=== PATIENT | female | born 1945 | race Caucasian/White ===

== ENCOUNTER 2020-02-26 16:12 | Emergency (ER) | payer MEDICARE, OTHER ==
[~2020-02-26] VITALS: Ht 162.6 cm; Wt 62.0 kg
[2020-02-26 18:11] LABS: BASO % 0 % (0-3); EOS % 0 % (0-3); HEMATOCRIT 35.6 % (36.0-47.0); HEMOGLOBIN 11.7 g/dL (12.0-15.5); LYMPH # 0.6 x10^3/uL (1.0-4.8); LYMPH % 5 % (24-48); MEAN CORPUSCULAR HEMOGLOBIN 33 pg (25-35); MEAN CORPUSCULAR HGB CONC 33 g/dL (31-37); MEAN CORPUSCULAR VOLUME 100 fL (79-100); MONO # 0.3 x10^3/uL (0.0-1.1); MONO % 3 % (0-9); NEUT # 10.3 x10^3/uL (1.8-7.7); NEUT % 92 % (31-73); PLATELET COUNT 302 x10^3/uL (140-400); RED BLOOD COUNT 3.57 x10^6/uL (3.50-5.40); RED CELL DISTRIBUTION WIDTH 14.7 % (11.5-14.5); WHITE BLOOD COUNT 11.3 x10^3/uL (4.0-11.0)
[2020-02-26 18:22] LABS: PROTHROMBIN TIME PATIENT 15.1 SEC (11.7-14.0)
--- NOTE | 2020-02-26 18:47 | RAD ---
XR CHEST 2V History: Reason: GI BLEED / Spl. Instructions: / History: Comparison: December 19, 2019 Findings: Breast implants increased density over the lung bases. No consolidation or pleural effusion. No pneum othorax. Unchanged heart size. Thoracolumbar stabilization hardware noted. Mid thoracic vertebroplast y material noted. Asymmetric left apical pleural thickening, unchanged. Impression: 1. No acute cardiopulmonary process. Electronically signed by: Dannie Chahal DO (02/26/2020 6:44 PM) [facility]
[2020-02-26 19:28] LABS: % BANDS 3 % (0-9); % LYMPHS 8 % (24-48); % MONOS 4 % (0-10); % SEGS 85 % (35-66); PLT ESTIMATE ADEQUATE (ADEQUATE)
[2020-02-26 19:38] LABS: FECAL OB PT POSITIVE (NEG)
[2020-02-26 19:43] LABS: CALCIUM 9.6 mg/dL (8.5-10.1); CREATININE 1.1 mg/dL (0.6-1.0); GFR 48.4; POTASSIUM 4.6 mmol/L (3.5-5.1)
[2020-02-26 19:50] LABS: ALBUMIN 3.6 g/dL (3.4-5.0); TOTAL BILIRUBIN 0.5 mg/dL (0.2-1.0); TOTAL PROTEIN 7.2 g/dL (6.4-8.2)
--- NOTE | 2020-02-26 20:18 | PHYS DOC ---
Past Medical History Past Medical History: A-Fib, Depression, GERD, High Cholesterol, Hypothyroid, Migraines Additional Past Medical Histor: colitis, R femur fx, spinal stenosis, seasonal allergies, osteoporsis (MAICOL BHAT APRN) Past Surgical History: Cholecystectomy, Tonsillectomy Additional Past Surgical Histo: R knee, ulcer sx, L elbow, breast implants, partial gastrectomy, face lift (MAICOL BHAT APRN) Smoking Status: Never Smoker Alcohol Use: Rarely (MAICOL BHAT APRN) General Adult EDM: Chief Complaint: ABNORMAL LABS HPI: HPI: Patient is a 74 year old female presents to the emergency department stating that her primary care Dr. Dietz sent her here for a low hemoglobin reading of 8.4. Patient states she has noted bright red blood in her stools over the past 3 days. Patient denies any chest pain, shortness of breath, nausea, vomiting, diarrhea, or abdominal pains. Patient denies any constipation. Patient states that her stool is often loose. Patient states that over the past 3 days she has noticed some bright red blood streaked in her stool. Patient currently denies any dizziness, neurological problems, weakness, or numbness to her extremities. Denies any recent fever or chills. Patient denies any other physical complaints or physical symptoms. (MAICOL BHAT APRN) Review of Systems: Review of Systems: 14 body systems of review of systems have been reviewed. See HPI for pertinent positives and negative responses, otherwise all other systems are negative, nonpertinent or noncontributory. (MAICOL BHAT APRN) Heart Score: Risk Factors: Risk Factors: DM, Current or recent (<one month) smoker, HTN, HLP, family history of CAD, obesity. Risk Scores: Score 0 - 3: 2.5% MACE over next 6 weeks - Discharge Home Score 4 - 6: 20.3% MACE over next 6 weeks - Admit for Clinical Observation Score 7 - 10: 72.7% MACE over next 6 weeks - Early Invasive Strategies (MAICOL BHAT APRN) Allergies: Allergies: Allergies Coded Allergies Type Severity Reaction Last Updated Verified acetaminophen Allergy Unknown 02/26/20 Yes fentanyl Allergy Unknown 02/26/20 Yes hydrocodone Allergy Unknown 02/26/20 Yes lithium Allergy Unknown 02/26/20 Yes immune globulin,gamma (IgG) human Adverse Reaction Unknown HYPOTENSION 02/26/20 Yes (MAICOL BHAT APRN) Physical Exam: PE: Constitutional: Well developed, well nourished, no acute distress, non-toxic appearance. [] HENT: Normocephalic, atraumatic, bilateral external ears normal, oropharynx moist, no oral exudates, nose normal. [] Eyes: PERRLA, EOMI, conjunctiva normal, no discharge. [] Neck: Normal range of motion, no tenderness, supple, no stridor. [] Cardiovascular:Heart rate regular rhythm, no murmur [] Lungs & Thorax: Bilateral breath sounds clear to auscultation [] Abdomen: Bowel sounds normal, soft, no tenderness, no masses, no pulsatile masses. [] Skin: Warm, dry, no erythema, no rash. [] Back: No tenderness, no CVA tenderness. [] Extremities: No tenderness, no cyanosis, no clubbing, ROM intact, no edema. [] Neurologic: Alert and oriented X 3, normal motor function, normal sensory function, no focal deficits noted. [] Psychologic: Affect normal, judgement normal, mood normal. [] (MAICOL BHAT APRN) Current Patient Data: Labs: Laboratory Tests Test 02/26/20 18:01 02/26/20 19:05 02/26/20 19:23 White Blood Count 11.3 x10^3/uL (4.0-11.0) H Red Blood Count 3.57 x10^6/uL (3.50-5.40) Hemoglobin 11.7 g/dL (12.0-15.5) L Hematocrit 35.6 % (36.0-47.0) L Mean Corpuscular Volume 100 fL (79-100) Mean Corpuscular Hemoglobin 33 pg (25-35) Mean Corpuscular Hemoglobin Concent 33 g/dL (31-37) Red Cell Distribution Width 14.7 % (11.5-14.5) H Platelet Count 302 x10^3/uL (140-400) Neutrophils (%) (Auto) 92 % (31-73) H Lymphocytes (%) (Auto) 5 % (24-48) L Monocytes (%) (Auto) 3 % (0-9) Eosinophils (%) (Auto) 0 % (0-3) Basophils (%) (Auto) 0 % (0-3) Neutrophils # (Auto) 10.3 x10^3/uL (1.8-7.7) H Lymphocytes # (Auto) 0.6 x10^3/uL (1.0-4.8) L Monocytes # (Auto) 0.3 x10^3/uL (0.0-1.1) Eosinophils # (Auto) 0.0 x10^3/uL (0.0-0.7) Basophils # (Auto) 0.0 x10^3/uL (0.0-0.2) Segmented Neutrophils % 85 % (35-66) H Band Neutrophils % 3 % (0-9) Lymphocytes % 8 % (24-48) L Monocytes % 4 % (0-10) Platelet Estimate Adequate (ADEQUATE) Prothrombin Time 15.1 SEC (11.7-14.0) H Prothrombin Time INR 1.2 (0.8-1.1) H Activated Partial Thromboplast Time 39 SEC (24-38) H Sodium Level 133 mmol/L (136-145) L Potassium Level 4.6 mmol/L (3.5-5.1) Chloride Level 98 mmol/L (98-107) Carbon Dioxide Level 27 mmol/L (21-32) Anion Gap 8 (6-14) Blood Urea Nitrogen 33 mg/dL (7-20) H Creatinine 1.1 mg/dL (0.6-1.0) H Estimated GFR (Cockcroft-Gault) 48.4 BUN/Creatinine Ratio 30 (6-20) H Glucose Level 158 mg/dL (70-99) H Calcium Level 9.6 mg/dL (8.5-10.1) Total Bilirubin 0.5 mg/dL (0.2-1.0) Aspartate Amino Transferase (AST) 26 U/L (15-37) Alanine Aminotransferase (ALT) 22 U/L (14-59) Alkaline Phosphatase 105 U/L (46-116) Total Protein 7.2 g/dL (6.4-8.2) Albumin 3.6 g/dL (3.4-5.0) Albumin/Globulin Ratio 1.0 (1.0-1.7) Stool Occult Blood Positive (NEG) Laboratory Tests 02/26/20 18:01 Laboratory Tests 02/26/20 19:05 Vital Signs: Vital Signs Date Time Temp Pulse Resp B/P (MAP) Pulse Ox O2 Delivery O2 Flow Rate FiO2 02/26/20 18:40 70 18 148/89 (108) 95 Room Air 02/26/20 17:23 98.1 98.1 (MAICOL BHAT APRN) EKG: EKG: EKG performed at 1732 by ED nursing staff, irregular rhythm atrial fibrillation controlled with a heart rate 81 bpm, QTc interval 0.481, no acute STEMI, no ACS, no acute ischemia appreciated, EKG interpreted by ED attending physician Dr. Carreon. (MAICOL BHAT APRN) Radiology/Procedures: Radiology/Procedures: [] (MAICOL BHAT APRN) Course & Med Decision Making: Course & Med Decision Making Pertinent Labs and Imaging studies reviewed. (See chart for details) 74-year-old female, vital signs stable, presents emergency department stating that her primary care physician sent her here for a low hemoglobin of 8.4. Labs were drawn EKG performed. Labs not concerning for acute anemia, hemoglobin 11.7. Related to patient stating that there was blood in her stool, a rectal exam was done and Hemoccult was performed, there was nonthrombosed pink hemorrhoids 1 at 5 o'clock position excoriated, no blood noted in stool. However Hemoccult was positive. Discussed findings with patient, fear of low hemoglobin not presented in ER today. Discussed with patient need to follow back up with her primary care Dr. Dietz for reevaluation of hemoglobin and hemorrhoids. Patient gave verbal understand ing of discharge home instructions, return to emergency department precautions or concerns, had no further questions or concerns and was discharged home without incident. Impression: #1 feared condition not demonstrated #2 hemorrhoids (MAICOL BHAT APRN) Course & Med Decision Making I oversaw on the above date of service of this patient and discussed the care with the FLUTE [employer]ISHER. I agree with the findings, plan of care, and disposition as documented. (JOSSY STEWARD DO) Monica Disclaimer: Dragon Disclaimer: This electronic medical record was generated, in whole or in part, using a voice recognition dictation system. (MAICOL BHAT APRN) Departure Departure Impression: Primary Impression: Feared condition not demonstrated Additional Impression: Hemorrhoids Qualified Codes: K64.9 - Unspecified hemorrhoids Disposition: 01 DC HOME SELF CARE/HOMELESS Condition: GOOD Referrals: NOREEN DIETZ MD (PCP) Additional Instructions: Please relay these labs to your Dr. Peoples on your next appointment. WBC 11.3, RBC 3.57, Hgb 11.7, HCT 35.6, RDW 14.7, KCl 4.6, STUDENT ASSISTANCE COUNSELOR 1.1, BUN 33. Please return the emergency department for worsening symptoms or other concerns. EMERGENCY DEPARTMENT GENERAL DISCHARGE INSTRUCTIONS Thank you for coming to [facility] Emergency Department (ED) today and trusting us with you care. We trust that you had a positive experience in our Emergency Department. If you wish to speak to the department management, you may call the Director at [phone]. YOUR FOLLOW UP INSTRUCTIONS ARE FOLLOWS: 1. Do you have a private Doctor? If you do not have a private doctor, please ask for a resource list of physicians or clinics that may be able to assist you with follow up care. 2. The Emergency Physicain has interpreted your x-rays. The X-Ray specialist will also review them. If there is a change in the findings, you will be notified in 48 hours when at all possible. 3. A lab test or culture has been done, your results will be reviewed and you will be notified if you need a change in treatment. ADDITIONAL INSTRUCTIONS AND INFORMATION: 1. Your care today has been supervised by a physician who is specially trained in emergency care. Many problems require more than one evaluation for a complete diagnosis and treatment. We recommend that you schedule your follow up appointment as recommended to ensure complete treatment of you illness or injury. If you are unable to obtain follow up care and continue to have a problem, or if your condition worsens, we recommend that you return to the ED. 2. We are not able to safely determine your condition over the phone nor are we able to give sound medical advice over the phone. For these safety reasons, if you call for medical advice we will ask you to come to the ED for further evaluation. 3. If you have any questions regarding these discharge instructions please call the ED at [phone]. SAFETY INFORMATION: In the interest of safety, wellness, and injury prevention; we encourage you to wear your sealbelt, if you smoke; quite smoking, and we encourage family to use a protective helmet for bicycling and other sporting events that present an increased risk for head injury. IF YOUR SYMPTOMS WORSEN OR NEW SYMPTOMS DEVELOP, OR YOU HAVE CONCERNS ABOUT YOUR CONDITION; OR IF YOUR CONDITION WORSENS WHILE YOU ARE WAITING FOR YOUR FOLLOW UP AP POINTMENT; EITHER CONTACT YOUR PRIMARY CARE DOCTOR, THE PHYSICIAN WHOSE NAME AND NUMBER YOU WERE GIVEN, OR RETURN TO THE ED IMMEDIATELY. MAICOL BHAT APRN Feb 26, 2020 20:18 JOSSY STEWARD DO Feb 29, 2020 00:19
[2020-02-26 20:20] VITALS: BP 151/67
== END 2020-02-26 20:37 | disposition home or self-care (01) ==
LOC: ER 16:12
DX: K64.9 Unspecified hemorrhoids (principal); K92.1 Melena; D64.9 Anemia, unspecified; I48.20 Chronic atrial fibrillation, unspecified; F32.9 Major depressive disorder, single episode, unspecified; K21.9 Gastro-esophageal reflux disease without esophagitis; E78.00 Pure hypercholesterolemia, unspecified; E03.9 Hypothyroidism, unspecified; G43.909 Migraine, unspecified, not intractable, without status migrainosus; Z90.49 Acquired absence of other specified parts of digestive tract; Z90.89 Acquired absence of other organs; Z98.890 Other specified postprocedural states; Z88.2 Allergy status to sulfonamides; Z88.5 Allergy status to narcotic agent; Z88.8 Allergy status to other drugs, medicaments and biological substances
CPT/HCPCS: 36415; 71046; 80053; 82274; 85007; 85025; 85610; 85730; 93005; 99285